=== PATIENT | female | born 1995 | race Caucasian/White ===

== ENCOUNTER 2019-07-14 13:51 | Emergency (ER) | payer OTHER ==
[2019-07-14 14:09] VITALS: BP 114/72; PULSE 75; TEMP 98; BMI 23.0
[2019-07-14] MEDS ORDERED: CYCLOBENZAPRINE HCL 5 MG TABLET PO ONE (14:14)
[2019-07-14] MEDS ORDERED: LIDOCAINE 5% TOPICAL PATCH TP ONE (14:14)
[2019-07-14] MEDS ORDERED: ACETAMINOPHEN 325 MG TABLET (FP) PO ONE (14:14)
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
[2019-07-14] MEDS ORDERED: ACETAMINOPHEN 325 MG TABLET (FP) ONE (14:25)
[2019-07-14] MEDS ORDERED: CYCLOBENZAPRINE HCL 10 MG TABLET (FP) ONE (14:25)
[2019-07-14] MEDS ORDERED: LIDOCAINE 5% TOPICAL PATCH ONE ×2 (14:26→14:34)
== END 2019-07-14 14:53 | disposition home or self-care (01) ==
LOC: FER 13:51
DX: S16.1XXA Strain of muscle, fascia and tendon at neck level, initial encounter (principal); K50.90 Crohn's disease, unspecified, without complications; V43.52XA Car driver injured in collision with other type car in traffic accident, initial encounter; Y92.410 Unspecified street and highway as the place of occurrence of the external cause; Z88.0 Allergy status to penicillin
CPT/HCPCS: 99281-25